=== PATIENT | female | born 1995 | race African-American/Black ===

== ENCOUNTER 2017-09-16 21:58 | Emergency (ER) | payer OTHER ==
[~2017-09-16] VITALS: Ht 180.3 cm; Wt 71.7 kg
[~2017-09-16 21:58] MED LIST: PRE10 PO; PRE20 PO; PRI20 PO
[2017-09-16 22:13] VITALS: Ht 180.3 cm; Wt 71.7 kg
[2017-09-17 01:27] VITALS: BP 95/58
== END 2017-09-17 01:27 | disposition home or self-care (01) ==
LOC: ED 21:58
DX: J06.9 Acute upper respiratory infection, unspecified (principal); R07.9 Chest pain, unspecified; Z88.8 Allergy status to other drugs, medicaments and biological substances
CPT/HCPCS: 87804; J1885; Q0092

== ENCOUNTER 2018-01-17 08:07 | Emergency (ER) | payer OTHER ==
[~2018-01-17] VITALS: Ht 180.3 cm; Wt 65.9 kg
[2018-01-17 08:18] VITALS: Ht 180.3 cm; Wt 65.9 kg
[2018-01-17 09:03] LABS: BASOPHIL % 1.2 % (0-2); PLATELET COUNT 331 x10^3mcL (130-400); RED CELL DISTRIBUTION WIDTH 13.5 % (11.5-14.5)
[2018-01-17 09:12] LABS: CALCIUM 8.2 mg/dL (8.5-10.1); CARBON DIOXIDE 26.2 mmol/L (21-32); CHLORIDE SERUM 105 mmol/L (98-107); CREATININE SERUM 0.7 mg/dL (0.6-1.0); GFR1 > 60 mL/min; GLUCOSE SERUM 96 mg/dL (74-106); POTASSIUM SERUM 3.3 mmol/L (3.5-5.1); SODIUM SERUM 141 mmol/L (136-145)
[2018-01-17 09:17] LABS: ALBUMIN 3.4 g/dL (3.4-5.0); ALKALINE PHOSPHATASE 61 U/L (46-116); ALT/SGPT 91 U/L (14-59); AST/SGOT 123 U/L (15-37); BILIRUBIN TOTAL 0.4 mg/dL (0.20-1.00); CHOLESTEROL 146 mg/dL (<200); HDL CHOLESTEROL 37 mg/dL (40-60); TOTAL PROTEIN, SERUM 7.4 g/dL (6.4-8.2)
[2018-01-17 09:56] LABS: AMPHETAMINE QUAL UR NONE DETECTED (See below)
[2018-01-17 12:02] VITALS: BP 102/56
== END 2018-01-17 12:02 | disposition home or self-care (01) ==
LOC: ED 08:07
PROVIDERS: Emergency Medicine
DX: S13.4XXA Sprain of ligaments of cervical spine, initial encounter (principal); S63.502A Unspecified sprain of left wrist, initial encounter; M33.20 Polymyositis, organ involvement unspecified; M54.5 Low back pain; R55 Syncope and collapse; Z88.8 Allergy status to other drugs, medicaments and biological substances; W22.8XXA Striking against or struck by other objects, initial encounter; Y93.89 Activity, other specified; Y92.89 Other specified places as the place of occurrence of the external cause; Y99.8 Other external cause status
CPT/HCPCS: 72072; 83880; J1885; J2405

== ENCOUNTER 2018-02-17 18:54 | Inpatient (IN) | payer OTHER ==
[~2018-02-17] VITALS: Ht 180.3 cm; Wt 69.1 kg
[2018-02-17 19:12] VITALS: Ht 180.3 cm; Wt 69.1 kg
[2018-02-17 21:54] LABS: BASOPHIL % 2.7 % (0-2); PLATELET COUNT 308 x10^3mcL (130-400); RED CELL DISTRIBUTION WIDTH 13.5 % (11.5-14.5)
[2018-02-17 22:01] LABS: CALCIUM 7.4 mg/dL (8.5-10.1); CARBON DIOXIDE 27.3 mmol/L (21-32); CHLORIDE SERUM 103 mmol/L (98-107); CREATININE SERUM 0.6 mg/dL (0.6-1.0); GFR1 > 60 mL/min; GLUCOSE SERUM 85 mg/dL (74-106); POTASSIUM SERUM 3.7 mmol/L (3.5-5.1); SODIUM SERUM 140 mmol/L (136-145)
[2018-02-17 22:06] LABS: ALBUMIN 3.1 g/dL (3.4-5.0); ALKALINE PHOSPHATASE 48 U/L (46-116); ALT/SGPT 84 U/L (14-59); AST/SGOT 120 U/L (15-37); BILIRUBIN TOTAL 0.4 mg/dL (0.20-1.00)
[2018-02-17 22:20] LABS: microscopic required? YES; urine erythrocyte 1+ (NEGATIVE)
[2018-02-17 23:45] VITALS: BP 96/55
[2018-02-18 00:08] LABS: AMPHETAMINE QUAL UR NONE DETECTED (See below)
[2018-02-18 02:17] LABS: MAGNESIUM 1.7 mg/dL (1.8-2.4); PHOSPHOROUS 3.6 mg/dL (2.5-4.9)
[2018-02-18 02:20] LABS: T3 TOTAL 1.06 ng/mL
[2018-02-18 02:27] LABS: FREE T4 1.11 ng/dL (0.76-1.46); FREE THYROXINE INDEX 2.5 ug/dL (1.4-4.5); T4(THYROXINE) 8.4 ug/dL (4.7-13.3)
[2018-02-18 08:58] LABS: AMYLASE 138 U/L (25-115); LACTIC DEHYDROGENASE (LDH) 793 U/L (100-190)
[2018-02-18 10:44] VITALS: BP 90/42
[2018-02-18 13:44] VITALS: BP 103/63
[2018-02-18 17:32] VITALS: BP 100/53
[2018-02-18 22:02] VITALS: BP 112/67
[2018-02-19 05:11] VITALS: BP 100/66
[2018-02-19 07:04] LABS: BASOPHIL % 0.2 % (0-2); PLATELET COUNT 253 x10^3mcL (130-400); RED CELL DISTRIBUTION WIDTH 13.4 % (11.5-14.5)
[2018-02-19 07:12] LABS: CALCIUM 6.9 mg/dL (8.5-10.1); CARBON DIOXIDE 23.4 mmol/L (21-32); CHLORIDE SERUM 108 mmol/L (98-107); CREATININE SERUM 0.5 mg/dL (0.6-1.0); GFR1 > 60 mL/min; GLUCOSE SERUM 122 mg/dL (74-106); MAGNESIUM 1.4 mg/dL (1.8-2.4); PHOSPHOROUS 2.7 mg/dL (2.5-4.9); POTASSIUM SERUM 3.8 mmol/L (3.5-5.1); SODIUM SERUM 140 mmol/L (136-145)
[2018-02-19 09:56] VITALS: BP 103/56
[2018-02-19] MEDS ORDERED: PRI20 PO (14:03)
[2018-02-19] MEDS ORDERED: PREDNISONE50 MG PO ×2 (14:06→14:07)
[2018-02-19] MEDS ORDERED: MEDDP PO (14:07)
== END 2018-02-19 17:35 | disposition home or self-care (01) | DRG 346 ==
LOC: ED 18:54 → DU 22:44 → MU 22:44 → DU 23:59
PROVIDERS: Emergency Medicine; Internal Medicine
DX: M33.20 Polymyositis, organ involvement unspecified (principal); N17.0 Acute kidney failure with tubular necrosis; K85.90 Acute pancreatitis without necrosis or infection, unspecified; E44.0 Moderate protein-calorie malnutrition; E27.40 Unspecified adrenocortical insufficiency; E83.42 Hypomagnesemia; R80.9 Proteinuria, unspecified; Z68.20 Body mass index [BMI] 20.0-20.9, adult; Z79.52 Long term (current) use of systemic steroids
CPT/HCPCS: 83880; 84439; J1200; J1885; J2930; J3490; J7030; Q0162

== ENCOUNTER 2018-05-25 14:02 | Emergency (ER) | payer OTHER ==
[~2018-05-25] VITALS: Ht 180.3 cm; Wt 72.6 kg
[~2018-05-25 14:02] MED LIST changes: +MEDDP PO; +PREDNISONE50 MG PO
[2018-05-25 14:18] VITALS: Ht 180.3 cm; Wt 72.6 kg
[2018-05-25 17:41] VITALS: BP 116/70
== END 2018-05-25 17:41 | disposition home or self-care (01) ==
LOC: ED 14:02
DX: S16.1XXA Strain of muscle, fascia and tendon at neck level, initial encounter (principal); Z88.8 Allergy status to other drugs, medicaments and biological substances; V49.88XA Car occupant (driver) (passenger) injured in other specified transport accidents, initial encounter; Y93.I9 Activity, other involving external motion; Y92.413 State road as the place of occurrence of the external cause; Y99.8 Other external cause status
CPT/HCPCS: J1885

== ENCOUNTER 2018-05-27 16:08 | Emergency (ER) | payer OTHER ==
[~2018-05-27] VITALS: Ht 180.3 cm; Wt 72.1 kg
[2018-05-27 16:26] VITALS: Ht 180.3 cm; Wt 72.1 kg
[2018-05-27 20:32] VITALS: BP 111/64
== END 2018-05-27 20:32 | disposition home or self-care (01) ==
LOC: ED 16:08
DX: S20.219A Contusion of unspecified front wall of thorax, initial encounter (principal); Z88.8 Allergy status to other drugs, medicaments and biological substances; V43.52XA Car driver injured in collision with other type car in traffic accident, initial encounter; Y93.I9 Activity, other involving external motion; Y92.488 Other paved roadways as the place of occurrence of the external cause; Y99.8 Other external cause status
CPT/HCPCS: 94150

== ENCOUNTER 2018-07-31 10:40 | Inpatient (IN) | payer OTHER ==
[~2018-07-31] VITALS: Ht 185.4 cm; Wt 69.5 kg
[2018-07-31 10:48] VITALS: Ht 185.4 cm; Wt 69.5 kg
[2018-07-31 11:33] LABS: CALCIUM 7.9 mg/dL (8.5-10.1); CARBON DIOXIDE 25.7 mmol/L (21-32); CHLORIDE SERUM 104 mmol/L (98-107); CREATININE SERUM 0.7 mg/dL (0.6-1.0); GFR1 > 60 mL/min; GLUCOSE SERUM 86 mg/dL (74-106); POTASSIUM SERUM 3.7 mmol/L (3.5-5.1); SODIUM SERUM 140 mmol/L (136-145)
[2018-07-31 11:38] LABS: ALBUMIN 3.6 g/dL (3.4-5.0); ALKALINE PHOSPHATASE 61 U/L (46-116); ALT/SGPT 127 U/L (14-59); AST/SGOT 184 U/L (15-37); BILIRUBIN TOTAL 0.51 mg/dL (0.20-1.00); TOTAL PROTEIN, SERUM 7.5 g/dL (6.4-8.2)
[2018-07-31 11:40] LABS: BASOPHIL % 0.2 % (0-2); PLATELET COUNT 281 x10^3mcL (130-400); RED CELL DISTRIBUTION WIDTH 12.5 % (11.5-14.5)
[2018-07-31 17:26] LABS: MAGNESIUM 1.4 mg/dL (1.8-2.4); PHOSPHOROUS 3.3 mg/dL (2.5-4.9)
[2018-07-31 17:35] LABS: FREE T4 1.17 ng/dL (0.76-1.46); FREE THYROXINE INDEX 3.3 ug/dL (1.4-4.5); T4(THYROXINE) 10.2 ug/dL (4.7-13.3)
[2018-07-31 17:39] LABS: microscopic required? NO
[2018-07-31 17:46] VITALS: BP 107/57
[2018-07-31 17:54] LABS: urine erythrocyte NEGATIVE (NEGATIVE)
[2018-07-31 18:12] LABS: AMPHETAMINE QUAL UR NONE DETECTED (See below)
[2018-07-31 20:51] VITALS: BP 107/53
[2018-07-31 21:50] VITALS: BP 107/53
[2018-08-01 05:08] VITALS: BP 105/55
[2018-08-01 06:56] LABS: PLATELET COUNT 262 x10^3mcL (130-400); RED CELL DISTRIBUTION WIDTH 12.5 % (11.5-14.5)
[2018-08-01 07:06] LABS: BASOPHIL % 0 % (0-2)
[2018-08-01 08:41] LABS: CALCIUM 7.9 mg/dL (8.5-10.1); CHLORIDE SERUM 107 mmol/L (98-107); CREATININE SERUM 0.7 mg/dL (0.6-1.0); GFR1 > 60 mL/min; GLUCOSE SERUM 154 mg/dL (74-106); MAGNESIUM 1.3 mg/dL (1.8-2.4); PHOSPHOROUS 1.9 mg/dL (2.5-4.9); POTASSIUM SERUM 3.3 mmol/L (3.5-5.1); SODIUM SERUM 142 mmol/L (136-145)
[2018-08-01 09:04] VITALS: BP 99/52
[2018-08-01 14:38] LABS: T3 TOTAL 1.21 ng/mL
[2018-08-01 18:05] VITALS: BP 101/57
[2018-08-01 19:58] VITALS: BP 107/49
[2018-08-01 21:53] VITALS: BP 107/60
[2018-08-02 05:52] VITALS: BP 103/64
[2018-08-02 06:33] LABS: BASOPHIL % 0.1 % (0-2); PLATELET COUNT 231 x10^3mcL (130-400); RED CELL DISTRIBUTION WIDTH 13.2 % (11.5-14.5)
[2018-08-02 06:46] LABS: ALKALINE PHOSPHATASE 45 U/L (46-116); ALT/SGPT 121 U/L (14-59); AST/SGOT 100 U/L (15-37); BILIRUBIN DIRECT 0.06 mg/dL (0.0-0.2); BILIRUBIN TOTAL 0.1 mg/dL (0.20-1.00); CALCIUM 7.7 mg/dL (8.5-10.1); CARBON DIOXIDE 22.7 mmol/L (21-32); CHLORIDE SERUM 111 mmol/L (98-107); CREATININE SERUM 0.5 mg/dL (0.6-1.0); GFR1 > 60 mL/min; GLUCOSE SERUM 116 mg/dL (74-106); MAGNESIUM 1.6 mg/dL (1.8-2.4); PHOSPHOROUS 2.4 mg/dL (2.5-4.9); POTASSIUM SERUM 4.2 mmol/L (3.5-5.1); SODIUM SERUM 142 mmol/L (136-145); TOTAL PROTEIN, SERUM 6.3 g/dL (6.4-8.2)
[2018-08-02 07:05] LABS: ALBUMIN 2.9 g/dL (3.4-5.0)
[2018-08-02] MEDS ORDERED: ROBDML PO (11:12)
[2018-08-02] MEDS ORDERED: MEDDP PO (11:12)
[2018-08-02] MEDS ORDERED: PRILOSEC OTC20 M1 PO (11:12)
[2018-08-02 11:48] VITALS: BP 103/64
== END 2018-08-02 12:38 | disposition home or self-care (01) | DRG 133 ==
LOC: ED 10:40 → MU 16:18
PROVIDERS: Emergency Medicine; ADMIT Internal Medicine
DX: J96.00 Acute respiratory failure, unspecified whether with hypoxia or hypercapnia (principal); M33.20 Polymyositis, organ involvement unspecified; E83.42 Hypomagnesemia; E83.39 Other disorders of phosphorus metabolism; J45.901 Unspecified asthma with (acute) exacerbation; M62.82 Rhabdomyolysis; J06.9 Acute upper respiratory infection, unspecified; J02.9 Acute pharyngitis, unspecified; R06.03 Acute respiratory distress; R73.03 Prediabetes; E87.6 Hypokalemia; J45.909 Unspecified asthma, uncomplicated; Z68.21 Body mass index [BMI] 21.0-21.9, adult
CPT/HCPCS: 83880; 84439; 87804; 94150; J1644; J2920; J2930; J3475; J7030; J7620; Q0092

== ENCOUNTER 2018-11-23 10:26 | Emergency (ER) | payer OTHER ==
[~2018-11-23] VITALS: Ht 180.3 cm; Wt 75.9 kg
[~2018-11-23 10:26] MED LIST changes: +PRILOSEC OTC20 M1 PO; +ROBDML PO
[2018-11-23 12:15] VITALS: BP 124/74
== END 2018-11-23 12:16 | disposition home or self-care (01) ==
LOC: ED 10:26
DX: B34.9 Viral infection, unspecified (principal); Z88.8 Allergy status to other drugs, medicaments and biological substances

== ENCOUNTER 2019-02-12 22:20 | Emergency (ER) | payer OTHER ==
[~2019-02-12] VITALS: Ht 180.3 cm; Wt 82.3 kg
[2019-02-12 22:29] VITALS: Ht 180.3 cm; Wt 82.3 kg
[2019-02-13 01:08] LABS: PLATELET COUNT 357 x10^3mcL (130-400); RED CELL DISTRIBUTION WIDTH 13.4 % (11.5-14.5)
[2019-02-13 01:10] LABS: BASOPHIL % 2.9 % (0-2)
[2019-02-13 01:22] LABS: CALCIUM 8.9 mg/dL (8.5-10.1); CARBON DIOXIDE 27.6 mmol/L (21-32); CHLORIDE SERUM 104 mmol/L (98-107); CREATININE SERUM 0.7 mg/dL (0.6-1.0); GFR1 > 60 mL/min; GLUCOSE SERUM 125 mg/dL (74-106); POTASSIUM SERUM 4.6 mmol/L (3.5-5.1); SODIUM SERUM 140 mmol/L (136-145)
[2019-02-13 01:27] LABS: ALBUMIN 3.8 g/dL (3.4-5.0); ALKALINE PHOSPHATASE 58 U/L (46-116); ALT/SGPT 81 U/L (14-59); AST/SGOT 65 U/L (15-37); BILIRUBIN TOTAL 0.4 mg/dL (0.20-1.00); TOTAL PROTEIN, SERUM 7.3 g/dL (6.4-8.2)
[2019-02-13 03:37] VITALS: BP 111/57
== END 2019-02-13 03:37 | disposition home or self-care (01) ==
LOC: ED 22:20
PROVIDERS: Emergency Medicine
DX: R07.89 Other chest pain (principal); R06.02 Shortness of breath; R42 Dizziness and giddiness; K29.70 Gastritis, unspecified, without bleeding; R74.8 Abnormal levels of other serum enzymes; M33.20 Polymyositis, organ involvement unspecified; Z88.8 Allergy status to other drugs, medicaments and biological substances
CPT/HCPCS: J1885; J2405; J3490; Q0092

== ENCOUNTER 2019-04-15 22:33 | Observation (INO) | payer OTHER ==
[~2019-04-15] VITALS: Ht 180.3 cm; Wt 79.0 kg
[2019-04-15 22:42] VITALS: Ht 180.3 cm; Wt 79.0 kg
--- NOTE | 2019-04-15 22:57 | NUR ---
PT PRESENTED TO THE ED WITH C/C OF ABDOMINAL PAIN AND HEADACHE X1 DAY. PT STATES WHILE SHE WAS DRIVING SHE HAD LOSS OF VISION AND UPON REGAINING HER VISION, IT WAS BLURRED TODAY. PT STATES "THIS HAS NEVER HAPPENED BEFORE". PT DENIES ANY INJURY OR TRAUMA. PT DENIES TAKING ANY DRUG OR ALCOHOL USE. PT IS AWAKE, AAOX4, ANSWERING QUESTIONS APPROPRIATELY, CONVERSING WITH SOMEONE ON HER PHONE VIA TEXT. DR. MARTIN AT BEDSIDE EVALUATING PT. RESP E/U, NAD NOTED.
[2019-04-15 23:20] LABS: PLATELET COUNT 258 x10^3mcL (130-400)
[2019-04-15 23:27] LABS: CALCIUM 7.5 mg/dL (8.5-10.1); CARBON DIOXIDE 25.7 mmol/L (21-32); CHLORIDE SERUM 106 mmol/L (98-107); CREATININE SERUM 0.6 mg/dL (0.6-1.0); GFR1 > 60 mL/min; GLUCOSE SERUM 93 mg/dL (74-106); POTASSIUM SERUM 3.6 mmol/L (3.5-5.1); SODIUM SERUM 141 mmol/L (136-145)
[2019-04-15 23:32] LABS: ALBUMIN 3.5 g/dL (3.4-5.0); ALKALINE PHOSPHATASE 69 U/L (46-116); ALT/SGPT 85 U/L (14-59); AMYLASE 121 U/L (25-115); AST/SGOT 92 U/L (15-37); BILIRUBIN TOTAL 0.43 mg/dL (0.20-1.00); C REACTIVE PROTEIN 0.2 mg/dL (<=0.9); LIPASE 159 IU/L (73-393); TOTAL PROTEIN, SERUM 7.2 g/dL (6.4-8.2)
[2019-04-15 23:37] LABS: BASOPHIL % 5.4 % (0-2)
--- NOTE | 2019-04-15 23:43 | NUR ---
PT STATING SHE IS IN PAIN, RATES PAIN 8/10. PT IS REQUESTING PAIN MEDICATION. . MADE AWARE.
--- NOTE | 2019-04-16 00:13 | NUR ---
PRE-VITAL CHECK RUN BY DR. MARTIN. PER DR. MARTIN, MORPHINE WAS DILUTED WITH 100MLS OF NS.
--- NOTE | 2019-04-16 00:19 | NUR ---
PT MEDICATED PER MD ORDER. PT VERBALIZED UNDERSTANDING OF MEDICATION PRIOR TO ADMINISTRATION.
[2019-04-16] MEDS ORDERED: PREDNISONE20 MG PO (00:24)
[2019-04-16] MEDS ORDERED: MET2.5 PO (00:27)
[2019-04-16] MEDS ORDERED: PHARMASSURE FO0.4 MG PO (00:28)
[2019-04-16 00:34] LABS: ERYTHROCYTE SED RATE 11 mm/hr (0-20)
--- NOTE | 2019-04-16 00:44 | NUR ---
PT REQUESTING TO EAT, PER DR. MARTIN PT IS ALLOWED TO EAT, GIVEN SANDWICH.
--- NOTE | 2019-04-16 01:05 | NUR ---
REPORT GIVEN TO ALFREDO EWING, TO ASSUME CARE FOR PT.
--- NOTE | 2019-04-16 01:13 | NUR ---
PT ADMITTED TO MED SURG UNIT. PT VERBALIZED UNDERSTANDING OF PLAN OF CARE. PT IS AWAKE, AAOX4, RESP E/U, NAD NOTED. TRANSPORTED VIA WHEELCHAIR TO UNIT BY EMT RUFINO.
--- NOTE | 2019-04-16 01:25 | NUR ---
PT RECIEVED FROM ER VIA WHEELCHAIR. PT DENIES ANY PAIN AT THIS TIME. SPEECH CLEAR AND FOLLOWS COMMAND. DENIES ANY BLURRY VISION AT THIS TIME. PT ORIENTED TO ROOM AND SURROUNDINGS. HL ON RT A/C, NO REDNESS NOTED. CALL LIGHT WITHIN REACHED. SHREE WELL.
[2019-04-16 01:32] VITALS: BP 96/53
--- NOTE | 2019-04-16 02:08 | NUR ---
PT. ARRIVED TO UNIT VIA WHEELCHAIR ACCOMPANIED BY ER NURSE. SHE OS AWAKE. ALERT, ORIENTED X4. DENIES HEADACHE OR DIZZINESS AT THIS TIME. DENIES BLURRED VISON. NO FACIAL DROOP OR SLURRED SPEECH NOTED. PT. DOES SOUNDS"NASALLY", BUT STATED THAT SHE USUALLY SOUNDS THAT WAY. BREATH SOUNDS CLEAR THROUGHOUT LUNG LEWIS, RESP. EVEN, UNLABORED. NO SOB NOTED. ON RA. ABD. SOFT AND FLAT, BOWEL SOUNDS ACTIVE. DENIES NAUSEA T THIS TIME. DENIES ABD. PAIN NOW. NO EDEMA NOTED TO EXTREMITTIES. PEDAL PULSE STRONG DIANA. IV HEPLOCKED, RAC, FLUSHING WELL, SITE INTACT. CALL LIGHT WITHIN REACH.
[2019-04-16 04:16] VITALS: BP 96/52
--- NOTE | 2019-04-16 06:19 | NUR ---
PT. AWAKE, PROGRAM MANAGER SLP AT BEDSIDE. DENIES ANY PAIN OR DISCOMFORT. DENIES BLURRED VISION. NO COMPLAINTS AT THIS TIME. IV SITE REMAINS INTACT. CALL LIGHT WITHIN REACH. WILL ENDORSE PT. CARE TO INCOMING NURSE.
[2019-04-16 06:42] LABS: PLATELET COUNT 237 x10^3mcL (130-400)
[2019-04-16 06:46] LABS: CALCIUM 7.1 mg/dL (8.5-10.1); CHLORIDE SERUM 108 mmol/L (98-107); CREATININE SERUM 0.6 mg/dL (0.6-1.0); GFR1 > 60 mL/min; GLUCOSE SERUM 89 mg/dL (74-106); POTASSIUM SERUM 3.5 mmol/L (3.5-5.1); SODIUM SERUM 140 mmol/L (136-145)
--- NOTE | 2019-04-16 07:05 | NUR ---
RECEIVED BEDSIDE REPORT FROM TRAVELING CLERK NURSE AT THIS TIME. PATIENT RESTING COMFORTABLY IN BED. NO APPARENT DISTRESS OR DISCOMFORT NOTED. BREATHING EVEN AND UNLABORED. NO RESPIRATORY DISTRESS NOTED. PATIENT DENIES CHEST PAIN/PRESSURE. IV PATENT AND INTACT. ALL QUESTIONS AND CONCERNS ADDRESSED. ALL NEEDS ATTENDED TO. WILL CONTINUE TO MONITOR
[2019-04-16 08:26] LABS: BAND NEUTROPHIL 0 % (0-10); BASOPHIL 0 % (0-2); MONOCYTE 8 % (0-7); SEGMENTED NEUTROPHILS 25 % (37-75)
[2019-04-16 08:50] VITALS: BP 96/54
--- NOTE | 2019-04-16 09:57 | NUR ---
PATIENT C/O PAIN AT THIS TIME. SPOKE TO DR CAMPBELL. PER DR CAMPBELL,OK TO INPUT TELEPHONE ORDER FOR TYLENOL 650MG Q4H PRN AND A 1X DOSE FOR 50MG TRAMADOL PO. TELEPHONE ORDER READ BACK, CONFIRMED, AND FOLLOWED THROUGH. ALL NEEDS ATTENDED TO. WILL CONTINUE TO MONITOR
--- NOTE | 2019-04-16 10:00 | NUR ---
MORNING MEDICATION ADMINISTERED. PATIENT TOLERATED WELL. NO APPARENT ADVERSE EFFECTS NOTED. ALL NEEDS ATTENDED TO. WILL CONTINUE TO MONITOR
--- NOTE | 2019-04-16 11:02 | NUR ---
PATIENT C/O 5/10 GENERALIZED PAIN AT THIS TIME. PATIENT MEDICATED WITH TRAMADOL PO AT THIS TIME. PATIENT TOLERATED MEDICATION WELL. NO APPARENT ADVERSE EFFECTS NOTED. ALL NEEDS ATTENDED TO. WILL CONTINUE TO MONITOR
--- NOTE | 2019-04-16 13:00 | NUR ---
PATIENT SITTING UP IN BED EATING LUNCH AT THIS TIME. PATIENT TOLERATING DIET WELL. NO APPARENT DISTRESS OR DISCOMFORT NOTED. ALL NEEDS ATTENDED TO. WILL CONTINUE TO MONITOR
[2019-04-16 13:14] LABS: UA SPECIFIC GRAVITY <=1.005 (1.005-1.035); microscopic required? YES; urine erythrocyte NEGATIVE (NEGATIVE)
[2019-04-16 16:40] VITALS: BP 98/52
--- NOTE | 2019-04-16 19:00 | NUR ---
PATIENT RESTING COMFORTABLY IN BED AT THIS TIME. NO APPARENT DISTRESS OR DISCOMFORT NOTED. IV PATENT AND INTACT. ALL QUESTIONS AND CONCERNS ADDRESSED. ALL NEEDS ATTENDED TO. SAFETY PRECAUTIONS MAINTAINED. WILL ENDORSE ALL CARE TO CHOIRMASTER NURSE.
--- NOTE | 2019-04-16 19:20 | NUR ---
PATIENT IN MRI BRAIN DEPT.ON INITIAL ROUND.WILL MET PATIENT WHEN SHE COME BACK.
--- NOTE | 2019-04-16 19:57 | NUR ---
ALTHEA RASCON,SAYS PATIENT COME BACK FROM MRI,WANTED HER DINNER TRAY AND GIVEN BY ALTHEA RASCON.
--- NOTE | 2019-04-16 20:01 | NUR ---
SHIFT REASSESSMENT DONE.PATIENT ALERT AND ORIENTED.MAKE NEEDSKNOWN TO STAFF.EATING HER DINNER NOW.GOOD APPETITE.MEDSURG PATIENT.BREATHING EASY.AMBULATORY.HEPOCK RAC.WILL APPLY EXTENSION TUBING LATER FOR EASIER HANDLING NURSE AND PATIENT.VOIDING WELL.CALL LIGHT IN REACH.
[2019-04-16 20:46] VITALS: BP 101/59
--- NOTE | 2019-04-16 21:11 | NUR ---
EXTENSION TUBING APPLIED TO HEPLOCK.PT WANTING A SANDWICH,DINNER NOT GOOD SHE SAYS.ABIODUN WILL BRING SANDWICH.
--- NOTE | 2019-04-16 23:21 | NUR ---
SLEEPING,QUIET ENVIRONMENT MAINTAINED.
--- NOTE | 2019-04-17 03:12 | NUR ---
CHECKED AT INTERVALS FOR NEEDS AND SAFETY.
[2019-04-17 04:27] VITALS: BP 94/49
--- NOTE | 2019-04-17 06:36 | NUR ---
I AND O MEASURED.NO DISTRESS THIS SHIFT.WILL ENDORSE TO NEXT SHIFT.GOING HOME THIS AM.
[2019-04-17 07:37] VITALS: BP 106/62
[2019-04-17 10:45] VITALS: BP 106/62
--- NOTE | 2019-04-17 11:52 | NUR ---
PATIENT SIGNED DC PAPERWORK, PRESCRIPTION GIVEN TO PT, IV DC'D FROM RIGHT AC WITH CATH INTACT, SITE WRAPPED WITH GAUZE AND COBAN, PATIENT TOLERATED WELL, PT GIVEN DC PAPERWORK AND F/U APPT. TAKEN DOWN TO DC OFFICE AT THIS TIME BY ALTHEA.
== END 2019-04-17 11:52 | disposition home or self-care (01) | DRG 54 ==
LOC: ED 22:33 → MU 04-16 00:28
PROVIDERS: Emergency Medicine; Internal Medicine; ADMIT Internal Medicine Nephrology
DX: G43.809 Other migraine, not intractable, without status migrainosus (principal); M33.20 Polymyositis, organ involvement unspecified; H53.8 Other visual disturbances; R74.0 Nonspecific elevation of levels of transaminase and lactic acid dehydrogenase [LDH]; R10.31 Right lower quadrant pain; Z79.52 Long term (current) use of systemic steroids
CPT/HCPCS: 97116-GP; A9577; G0378; J2270; Q0092

== ENCOUNTER 2019-08-18 20:38 | Emergency (ER) | payer OTHER ==
[~2019-08-18] VITALS: Ht 180.3 cm; Wt 78.9 kg
[~2019-08-18 20:38] MED LIST changes: +MET2.5 PO; +PHARMASSURE FO0.4 MG PO; +PREDNISONE20 MG PO
[2019-08-18 20:42] VITALS: Ht 180.3 cm; Wt 78.9 kg
[2019-08-18 21:30] LABS: PLATELET COUNT 265 x10^3mcL (130-400)
[2019-08-18 21:32] LABS: BASOPHIL % 2.4 % (0-2)
[2019-08-18 21:43] LABS: CARBON DIOXIDE 27.5 mmol/L (21-32); CHLORIDE SERUM 106 mmol/L (98-107); CREATININE SERUM 0.6 mg/dL (0.6-1.0); GFR1 > 60 mL/min; GLUCOSE SERUM 64 mg/dL (74-106); POTASSIUM SERUM 3.5 mmol/L (3.5-5.1); SODIUM SERUM 140 mmol/L (136-145)
[2019-08-18 21:44] LABS: CALCIUM 8.1 mg/dL (8.5-10.1)
[2019-08-18 21:49] LABS: ALBUMIN 3.3 g/dL (3.4-5.0); ALKALINE PHOSPHATASE 65 U/L (46-116); ALT/SGPT 105 U/L (14-59); AST/SGOT 126 U/L (15-37); BILIRUBIN TOTAL 0.4 mg/dL (0.20-1.00); TOTAL PROTEIN, SERUM 6.9 g/dL (6.4-8.2)
[2019-08-19 00:45] VITALS: BP 99/49
== END 2019-08-19 00:45 | disposition home or self-care (01) ==
LOC: ED 20:38
PROVIDERS: Emergency Medicine
DX: K52.9 Noninfective gastroenteritis and colitis, unspecified (principal); Z98.890 Other specified postprocedural states; Z88.8 Allergy status to other drugs, medicaments and biological substances
CPT/HCPCS: J1885; J2270; J2405; J7030

== ENCOUNTER 2019-11-30 12:31 | Emergency (ER) | payer OTHER, SELFPAY ==
[~2019-11-30] VITALS: Ht 180.3 cm; Wt 77.1 kg
[2019-11-30 12:36] VITALS: Ht 180.3 cm; Wt 77.1 kg
[2019-11-30 13:31] LABS: CALCIUM 8.2 mg/dL (8.5-10.1); CARBON DIOXIDE 26.2 mmol/L (21-32); CHLORIDE SERUM 107 mmol/L (98-107); CREATININE SERUM 0.5 mg/dL (0.6-1.0); GFR1 > 60 mL/min; GLUCOSE SERUM 87 mg/dL (74-106); POTASSIUM SERUM 3.8 mmol/L (3.5-5.1); SODIUM SERUM 142 mmol/L (136-145)
[2019-11-30 13:35] LABS: ALKALINE PHOSPHATASE 56 U/L (46-116); ALT/SGPT 101 U/L (14-59); AST/SGOT 106 U/L (15-37); BILIRUBIN TOTAL 0.5 mg/dL (0.20-1.00); LIPASE 150 IU/L (73-393); TOTAL PROTEIN, SERUM 6.9 g/dL (6.4-8.2)
[2019-11-30 13:39] LABS: ALBUMIN 3.3 g/dL (3.4-5.0)
[2019-11-30 13:54] LABS: BASOPHIL % 0.9 % (0-2); PLATELET COUNT 230 x10^3mcL (130-400); RED CELL DISTRIBUTION WIDTH 13.1 % (11.5-14.5)
[2019-11-30 15:42] VITALS: BP 110/55
== END 2019-11-30 15:42 | disposition home or self-care (01) ==
LOC: ED 12:31
PROVIDERS: Specialist
DX: J40 Bronchitis, not specified as acute or chronic (principal); R10.13 Epigastric pain; Z20.828 Contact with and (suspected) exposure to other viral communicable diseases; Z88.1 Allergy status to other antibiotic agents
CPT/HCPCS: 36415; 87804; J1885; Q0092; Q0162

== ENCOUNTER 2020-04-08 01:07 | Inpatient (IN) | payer OTHER ==
[~2020-04-08] VITALS: Ht 182.9 cm; Wt 79.8 kg
[2020-04-08 01:17] VITALS: Ht 182.9 cm; Wt 79.8 kg
--- NOTE | 2020-04-08 01:47 | NUR ---
24/F C/O CHEST PAIN X 3 DAYS. PT STATES "MIDSTRENAL AND LEFT SIDED CHEST PAIN X 3 DAYS BUT THE PAIN COMES AND GOES." 5/10 CHETS PAIN SHARP AT TIME OF ASSESSMENT. PT PLACED ON FULL CM. PT DENIES N/V/D/C. AA/OX4. RESP EVEN AND UNLABORED. WILL CONT TO MONITOR.
--- NOTE | 2020-04-08 02:23 | NUR ---
PT MEDICATED PER MD ORDER. SEE EMAR. PT VITALS UPDATED. PT ON FULL CM. AA/OX4. RESP EVEN AND UNLABORED. WILL CONT TO MONITOR.
[2020-04-08 02:41] LABS: BASOPHIL % 1.2 % (0-2); PLATELET COUNT 214 x10^3mcL (130-400); RED CELL DISTRIBUTION WIDTH 13.1 % (11.5-14.5)
[2020-04-08 02:50] LABS: CARBON DIOXIDE 30.5 mmol/L (21-32); CHLORIDE SERUM 104 mmol/L (98-107); GLUCOSE SERUM 79 mg/dL (74-106); POTASSIUM SERUM 3.5 mmol/L (3.5-5.1); SODIUM SERUM 141 mmol/L (136-145)
[2020-04-08 02:51] LABS: CALCIUM 7.9 mg/dL (8.5-10.1); CREATININE SERUM 0.8 mg/dL (0.6-1.0); GFR1 > 60 mL/min
[2020-04-08 02:58] LABS: ALBUMIN 3.2 g/dL (3.4-5.0); ALKALINE PHOSPHATASE 62 U/L (46-116); ALT/SGPT 91 U/L (14-59); AST/SGOT 96 U/L (15-37); BILIRUBIN TOTAL 0.44 mg/dL (0.20-1.00); TOTAL PROTEIN, SERUM 6.6 g/dL (6.4-8.2)
--- NOTE | 2020-04-08 03:15 | NUR ---
PT DENIES DAILY HOME MEDS.
--- NOTE | 2020-04-08 03:47 | NUR ---
PT SITTING IN BED IN POSITION OF COMFORT WATCHING HER PHONE. PT AA/OX4. RESP EVEN AND UNLABORED. PT ON FULL CM. WILL CONT TO MONITOR
--- NOTE | 2020-04-08 05:00 | NUR ---
PT AWAKE AND ALERT. RESP EVEN AND UNLABORED. PT ON FULL. LAYING IN POSITION OF COMFORT. WILL CONT TO MONITOR
--- NOTE | 2020-04-08 06:57 | NUR ---
PT LAYING IN POSITION OF COMFORT. EASILY AROUSABLE. RESP EVEN AND UNLABORED. PT ON FULL CM. WILL CONT TO MONITOR.
--- NOTE | 2020-04-08 07:16 | NUR ---
REPORT GIVEN TO ORTEGA FUENTES TO ASSUME CARE OF PT
--- NOTE | 2020-04-08 07:38 | NUR ---
ON DUTY RECEIVED THIS PT SLEEPING, NO ACUTE DISTRESS. PT WAS EASY TO AROSE, DENIES ANY PAIN. BED WAS ASSIGNED TO 235B. LOUIE RN WAS CALLED. REPORT GIVEN. EMT KORIN WILL SEND PT TO FLOOR.
--- NOTE | 2020-04-08 08:10 | NUR ---
RECEIVED PATIENT FROM ED VIA GURNEY. PATIENT AMBULATORY WITH NO ASSIST. PATIENT IS AAOX4, DENIES HEADACHE. PUPLSES PALPABLEX4, NO EDEMA NOTED. LUNG SOUNDS CTA, BREATHING EQUAL/UNLABORED. DENIES SOB ON ROOM AIR. PATIENT REPORTS LAST BM 04/08/20, PATIENT STATES BM WAS FORMED. DENIES N/V. PATIENT VOIDS FREELY. PATIENT DENIES PAIN AT THIS TIME. IV TO LAC SALINE LOCK, CDI&PATENT. CALL LIGHT WITHIN REACH, BED IN LOW POSITION, WILL CONTINUE TO MONITOR.
[2020-04-08 10:44] VITALS: BP 94/53
--- NOTE | 2020-04-08 11:30 | NUR ---
DR. CASPER MADE AWARE PATIENT HAS NO ORDERS FOR DIET, FLUIDS AND MEDICATIONS FOR PAIN MANAGEMENT. DR. CASPER STATED SHE WILL INPUT ORDERS, WILL FOLLOW UP WITH ANY NEW ORDERS.
[2020-04-08 12:14] VITALS: BP 91/43
--- NOTE | 2020-04-08 13:10 | NUR ---
PATIENT IS SLEEPING IN BED, NO ACUTE DISTRESS NOTED. NO INDICATION OF PAIN. ALL NEEDS MET AT THIS TIME, WILL CONTINUE TO MONITOR.
--- NOTE | 2020-04-08 17:15 | NUR ---
PATIENT RECEIVED PO MEDICATIONS AT THIS TIME, PATIENT TOLERATED WELL. NO ACUTE DISTRESS NOTED. PATIENT DENIES ANY PAIN AT THIS TIME. ALL NEEDS MET, WILL CONTINUE TO MONITOR AND MANAGE PAIN.
--- NOTE | 2020-04-08 19:30 | NUR ---
PT IN BED, AWAKE, A/O X3, ABLE TO FOLLOW COMMANDS, ABLE TO VERBALIZE NEEDS, NO C/O DIZZINESS. PT IS A MEDSURG PT, NO C/O CHEST PAIN. LUNG SOUNDS CLR BILATERALLY, RESP IS EVEN AND UNALBORED, SPO2 99% ON RA, NO SOB, NO COUGH NOTED. RADIAL AND PEDAL PULSES PRESENT, NO EDEMA NOTED. ABD FLAT AND SOFT, ACTIVE BS PRESENT X4 QUADS, NO C/O NVD. PT VOIDS FREELY, ABLE TO AMBULATE TO THE BR. SKIN IS WARM AND DRY. NO C/O OF PAIN AT THIS TIME. IV SITE TO THE LAC, PATENT AND FLUSHING WELL, CONNECTED TO NS @ 100 ML/HR. BED TO LOWEST POSITION, CALL LIGHT WITHIN REACH AT ALL TIMES. WILL CONT TO MONITOR FOR CHANGES IN CONDITION.
--- NOTE | 2020-04-08 21:00 | NUR ---
PT C/O DIGGS, MADE PT COMFORTABLE IN BED, TYLENOL PO GIVEN ORDERED. WILL CONT TO MONIOTR FOR CHANGES IN CONDITION.
[2020-04-08 22:25] VITALS: BP 99/59
--- NOTE | 2020-04-09 01:38 | NUR ---
PT VERBALIZED CONCERN OF HAVING A ROOM MATE. PT VERBALIZED SHE IS IMMUNOCOMPROMISED AND IS JUST CONCERENED OF HER HEALTH AND WELL BEING. TRANSFERRED RM FROM 235 TO 230. PT MADE COMFORTABLE IN BED, NO C/O PAIN AT THIS TIME. NS AT 100ML/HR INFUSING, RESP IS EVEN AND UNLABORED. CALL LIGHT IWHTIN REACH. WILL CONT TO MONITOR FOR CHANGES INCONDITION.
[2020-04-09 05:51] VITALS: BP 98/43
--- NOTE | 2020-04-09 06:52 | NUR ---
PT REMAINED IN BED, APPEARS TO BE RESTING WITH EYES CLOSED. NO C/O PAIN, NO ACUTE DISTRESS NOTED. RESP IS EVEN AND UNLABORED. FREQUENT VISUAL MONITORING RENDERED, NEEDS ATTENDED AND MET. WILL CONT TO MONITOR AND ENDORSE TO NEXT SHIFT NURSE.
--- NOTE | 2020-04-09 07:18 | NUR ---
PT C/O OF LOWER BACK PAIN 01/09, MADE COMFORTABLE IN BED, GIVEN NORCO PO PER MD ORDER. WILL CONT TO MONIOTR AND WILL ENDORSE TO NEXT SHIFT NURSE
--- NOTE | 2020-04-09 07:30 | NUR ---
RECEIVED PATIENT RESTING IN BED, NO ACUTE DISTRESS NOTED. PATIENT DENIES SOB, BREATHING E/U, LUNG SOUNDS CTA. PATIENT DENIES PAIN. PULSES PALPABLE X4, NO EDEMA NOTED. NS INFUSING TO LAC AT 100CC/HR, IV SITE CDI&PATENT. CALL LIGHT WITHIN REACH, BED IN LOW POSITION. WILL CONTINUE TO MONITOR.
[2020-04-09 07:59] LABS: ALKALINE PHOSPHATASE 59 U/L (46-116); ALT/SGPT 70 U/L (14-59); AST/SGOT 70 U/L (15-37); BILIRUBIN DIRECT 0.04 mg/dL (0.0-0.2); BILIRUBIN TOTAL 0.3 mg/dL (0.20-1.00); CALCIUM 7.5 mg/dL (8.5-10.1); CARBON DIOXIDE 26.6 mmol/L (21-32); CHLORIDE SERUM 109 mmol/L (98-107); CREATININE SERUM 0.5 mg/dL (0.6-1.0); GFR1 > 60 mL/min; GLUCOSE SERUM 113 mg/dL (74-106); LACTIC DEHYDROGENASE (LDH) 520 U/L (100-190); POTASSIUM SERUM 3.5 mmol/L (3.5-5.1); SODIUM SERUM 140 mmol/L (136-145)
[2020-04-09 08:00] LABS: ALBUMIN 2.7 g/dL (3.4-5.0)
[2020-04-09 08:07] LABS: BASOPHIL % 2.8 % (0-2); PLATELET COUNT 206 x10^3mcL (130-400); RED CELL DISTRIBUTION WIDTH 13.3 % (11.5-14.5)
[2020-04-09 08:12] VITALS: BP 102/58
[2020-04-09 12:04] VITALS: BP 104/55
--- NOTE | 2020-04-09 13:00 | NUR ---
PATIENT LAYING IN BED, NO ACUTE DISTRESS NOTED. PATIENT DENIES PAIN AT THIS TIME. DENIES SOB, BREATHING EQUAL/UNLABORED. ALL NEEDS MET AT THIS TIME, WILL CONTINUE TO MONITOR.
[2020-04-09 16:36] VITALS: BP 99/57
--- NOTE | 2020-04-09 17:20 | NUR ---
DR. EASLEY MADE AWARE PATIENT WANTED TO GO HOME TODAY, DR. EASLEY STATED PATIENT MAY GO HOME TODAY DEPENDING ON CPK LEVELS. WILL FOLLOW UP WITH LAB & DR. EASLEY FOR RESULTS. DISCHARGE PENDING AT THIS TIME.
[2020-04-09] MEDS ORDERED: PRE20 PO (17:31)
--- NOTE | 2020-04-09 18:36 | NUR ---
PAGED DR. PEMBERTON AT THIS TIME REGARDING CPK LABS.
--- NOTE | 2020-04-09 18:48 | NUR ---
DR. CALI GAVE TORB FOR [facility] LABS TO BE DONE STAT. ORDERS CARRIED OUT AT THIS TIME.
--- NOTE | 2020-04-09 19:10 | NUR ---
NO ACUTE CHANGES NOTED THROUGHOUT SHIFT, PATIENT IS STABLE. ENDORSED ALL CARE TO NIGHT RN.
--- NOTE | 2020-04-09 20:52 | NUR ---
[facility] RESULT 1680. INFORMED PT THAT DR MARCELINO ORDERED DISCHARGE IF [facility] IS TRENDING DOWN. PT REFUSED TO STAY. PT STATES SHE DOES NOT HAVE A SUPERVISOR POWER REACTOR AND WANTS TO GO HOME. DR CALI MADE AWARE AND ORDERED OK TO DISCHARGE NOW.
[2020-04-09 20:55] VITALS: BP 105/49
[2020-04-09 20:59] VITALS: BP 105/49
--- NOTE | 2020-04-09 21:47 | NUR ---
PT DISCHARGE HOME. PT STATES HER CAR IS IN THE PARKING LOT. IV REMOVED. NO BLEEDING NOTED. NO C/O PAIN. NO DISTRESS NOTED. NO TELE MONITOR. DISCHARGE PAPER EXPLAINED TO PT AND SIGNED.
== END 2020-04-09 21:47 | disposition home or self-care (01) | DRG 346 ==
LOC: ED 01:07 → MU 05:16
PROVIDERS: Emergency Medicine; ADMIT Internal Medicine; ATTEND Internal Medicine
DX: M33.20 Polymyositis, organ involvement unspecified (principal); M62.82 Rhabdomyolysis; Z88.8 Allergy status to other drugs, medicaments and biological substances; Z91.19 Patient's noncompliance with other medical treatment and regimen
CPT/HCPCS: G0378; J7030; J7512

== ENCOUNTER 2020-07-09 23:36 | Emergency (ER) | payer OTHER ==
[~2020-07-09] VITALS: Ht 182.9 cm; Wt 79.2 kg
[2020-07-09 23:47] VITALS: BP 102/60; Ht 182.9 cm; Wt 79.2 kg
[2020-07-10 00:44] LABS: BASOPHIL % 1.5 % (0-2); PLATELET COUNT 260 x10^3mcL (130-400); RED CELL DISTRIBUTION WIDTH 12.8 % (11.5-14.5)
[2020-07-10 00:48] LABS: CALCIUM 8.4 mg/dL (8.5-10.1); CHLORIDE SERUM 102 mmol/L (98-107); CREATININE SERUM 0.7 mg/dL (0.6-1.0); GFR1 > 60 mL/min; GLUCOSE SERUM 95 mg/dL (74-106); POTASSIUM SERUM 4.1 mmol/L (3.5-5.1); SODIUM SERUM 138 mmol/L (136-145)
[2020-07-10 00:52] LABS: ALBUMIN 3.6 g/dL (3.4-5.0); ALKALINE PHOSPHATASE 89 U/L (46-116); ALT/SGPT 63 U/L (14-59); AST/SGOT 69 U/L (15-37); BILIRUBIN TOTAL 0.46 mg/dL (0.20-1.00); LIPASE 157 IU/L (73-393); TOTAL PROTEIN, SERUM 7.7 g/dL (6.4-8.2)
== END 2020-07-10 00:29 | disposition left against medical advice (07) ==
LOC: ED 23:36
DX: Z53.21 Procedure and treatment not carried out due to patient leaving prior to being seen by health care provider (principal)

== ENCOUNTER 2020-08-30 18:39 | Emergency (ER) | payer OTHER ==
[~2020-08-30] VITALS: Ht 182.9 cm; Wt 80.7 kg
[2020-08-30 18:47] VITALS: Ht 182.9 cm; Wt 80.7 kg
[2020-08-30 21:06] LABS: BASOPHIL % 1.3 % (0.2-1.3); PLATELET COUNT 236 x10^3mcL (179-408)
[2020-08-30 21:11] LABS: CALCIUM 8.1 mg/dL (8.5-10.1); CARBON DIOXIDE 27.3 mmol/L (21-32); CHLORIDE SERUM 105 mmol/L (98-107); CREATININE SERUM 0.6 mg/dL (0.6-1.0); GFR1 > 60 mL/min; GLUCOSE SERUM 84 mg/dL (74-106); POTASSIUM SERUM 4.1 mmol/L (3.5-5.1); SODIUM SERUM 142 mmol/L (136-145)
[2020-08-30 21:16] LABS: ALBUMIN 3.8 g/dL (3.4-5.0); ALKALINE PHOSPHATASE 69 U/L (46-116); ALT/SGPT 93 U/L (14-59); AST/SGOT 77 U/L (15-37); BILIRUBIN TOTAL 0.6 mg/dL (0.20-1.00); LIPASE 156 IU/L (73-393); TOTAL PROTEIN, SERUM 7.7 g/dL (6.4-8.2)
[2020-08-30 22:05] VITALS: BP 117/70
== END 2020-08-30 22:05 | disposition home or self-care (01) ==
LOC: ED 18:39
PROVIDERS: Emergency Medicine
DX: R51.9 Headache, unspecified (principal); R10.9 Unspecified abdominal pain; Z88.8 Allergy status to other drugs, medicaments and biological substances
CPT/HCPCS: J1885